=== PATIENT | male | born 1970 | race Two or more races ===

== ENCOUNTER 2020-08-24 06:45 | Outpatient (REF) | payer OTHER, MEDICARE, MEDICAID, SELFPAY ==
[2020-08-24 07:11] LABS: MANUAL DIFF FLAG NO
[2020-08-24 07:32] LABS: Basophils Percent Auto 0.4 % (0-2); Eosinophils Absolute Auto 0.1 X10*3/uL (0.0-0.4); Hemoglobin 15.8 g/dl (14.0-18.0); Lymphocytes Absolute Auto 1.7 X10*3/uL (1.2-4.9); Lymphocytes Percent Auto 36.2 % (20-40); Mean Corpuscular HGB Conc 33.6 g/dl (31.0-36.0); Mean Corpuscular Hemoglobin 29.4 pg (27.0-33.0); Mean Corpuscular Volume 87.5 fL (80-98); Mean Platelet Volume 10.7 fL (9.4-12.4); Monocytes Absolute Auto 0.6 X10*3/uL (0.1-1.2); Monocytes Percent Auto 13.3 % (2-11); Neutrophils Absolute Auto 2.2 X10*3/uL (2.0-8.3); Neutrophils Percent Auto 48.1 % (45-73); Platelet Count 213 X10*3/uL (160-400); Red Blood Count 5.37 X10*6/uL (4.60-5.80); Red Cell Distribution Width 12.9 % (11.0-16.0); White Blood Count 4.6 X10*3/uL (4.8-10.8)
[2020-08-24 07:40] LABS: Alanine Aminotransferase 27 U/L (0-40); Albumin Level 3.9 g/dL (3.5-5.0); Alkaline Phosphatase 97 U/L (39-117); Anion Gap 14 (12-20); Aspartate Amino Transferase 26 U/L (5-37); Bilirubin Total 0.6 mg/dL (0.0-1.0); Blood Urea Nitrogen 19 mg/dL (9-16); Calcium 8.8 mg/dL (8.4-10.2); Carbon Dioxide 26 mmol/L (22-29); Chloride 104 mmol/L (96-108); Cholesterol 270 mg/dL; Estimated Glomerular Filt Rate > 60; Glucose Fasting 109 mg/dL (60-99); HDL Cholesterol 27 mg/dL; Sodium 140 mmol/L (135-145); Total Protein 7.1 g/dL (6.5-8.0); Triglycerides 1049 mg/dL
== END 2020-08-24 06:46 | disposition home or self-care (01) ==
LOC: HO.LAB 06:45
PROVIDERS: Visit Provider Internal Medicine
DX: Z00.00 Encounter for general adult medical examination without abnormal findings (principal); E11.9 Type 2 diabetes mellitus without complications
CPT/HCPCS: 36415; 80053; 80061; 85025

== ENCOUNTER 2021-04-28 07:06 | Outpatient (REF) | payer OTHER, MEDICARE, MEDICAID, SELFPAY ==
[2021-04-28 07:21] LABS: MANUAL DIFF FLAG NO
[2021-04-28 08:02] LABS: Basophils Percent Auto 0.2 % (0-2); Eosinophils Absolute Auto 0.1 X10*3/uL (0.0-0.4); Eosinophils Percent Auto 1.6 % (0-4); Hemoglobin 15.7 g/dl (14.0-18.0); Imm Gran Abs Auto 0.01 X10*3/uL (0.00-0.03); Imm Gran Pct Auto 0.2 % (0.0-0.4); Lymphocytes Absolute Auto 1.5 X10*3/uL (1.2-4.9); Lymphocytes Percent Auto 29.9 % (20-40); Mean Corpuscular HGB Conc 34.1 g/dl (31.0-36.0); Mean Corpuscular Hemoglobin 29.5 pg (27.0-33.0); Mean Corpuscular Volume 86.5 fL (80-98); Mean Platelet Volume 10.8 fL (9.4-12.4); Monocytes Absolute Auto 0.7 X10*3/uL (0.1-1.2); Monocytes Percent Auto 14.6 % (2-11); Neutrophils Absolute Auto 2.7 X10*3/uL (2.0-8.3); Neutrophils Percent Auto 53.5 % (45-73); Platelet Count 202 X10*3/uL (160-400); Red Blood Count 5.32 X10*6/uL (4.60-5.80); Red Cell Distribution Width 12.9 % (11.0-16.0)
[2021-04-28 08:29] LABS: Alanine Aminotransferase 30 U/L (0-40); Albumin Level 4.1 g/dL (3.5-5.0); Alkaline Phosphatase 95 U/L (39-117); Anion Gap 10 (12-20); Aspartate Amino Transferase 31 U/L (5-37); Bilirubin Total 0.6 mg/dL (0.0-1.0); Blood Urea Nitrogen 21 mg/dL (9-16); Calcium 9.3 mg/dL (8.4-10.2); Carbon Dioxide 31 mmol/L (22-29); Chloride 104 mmol/L (96-108); Cholesterol 242 mg/dL; Estimated Glomerular Filt Rate > 60; Glucose Fasting 111 mg/dL (60-99); HDL Cholesterol 35 mg/dL; Potassium 4.8 mmol/L (3.3-5.1); Sodium 140 mmol/L (135-145); Total Protein 7.1 g/dL (6.5-8.0); Triglycerides 576 mg/dL
[2021-04-28 08:48] LABS: Thyroid Stimulating Hormone 0.99 uIU/mL (0.32-4.0)
== END 2021-04-28 07:07 | disposition home or self-care (01) ==
LOC: HO.LAB 07:06
PROVIDERS: PCP Internal Medicine; Visit Provider Internal Medicine
DX: Z00.00 Encounter for general adult medical examination without abnormal findings (principal); E11.9 Type 2 diabetes mellitus without complications; E03.9 Hypothyroidism, unspecified
CPT/HCPCS: 36415; 80053; 80061; 84443; 85025

== ENCOUNTER 2022-04-04 07:06 | Outpatient (REF) | payer OTHER, MEDICAID, SELFPAY ==
[2022-04-04 07:26] LABS: MANUAL DIFF FLAG NO
[2022-04-04 07:43] LABS: Basophils Percent Auto 0.4 % (0-2); Eosinophils Absolute Auto 0.1 X10*3/uL (0.0-0.4); Eosinophils Percent Auto 0.9 % (0-4); Hematocrit 45.8 % (42.0-52.0); Hemoglobin 15.6 g/dl (14.0-18.0); Imm Gran Abs Auto 0.02 X10*3/uL (0.00-0.03); Imm Gran Pct Auto 0.4 % (0.0-0.4); Lymphocytes Absolute Auto 1.7 X10*3/uL (1.2-4.9); Lymphocytes Percent Auto 30.4 % (20-40); Mean Corpuscular HGB Conc 34.1 g/dl (31.0-36.0); Mean Corpuscular Hemoglobin 29.6 pg (27.0-33.0); Mean Corpuscular Volume 86.9 fL (80.0-98.0); Mean Platelet Volume 10.6 fL (9.4-12.4); Monocytes Absolute Auto 0.7 X10*3/uL (0.1-1.2); Monocytes Percent Auto 12.8 % (2-11); Neutrophils Percent Auto 55.1 % (45-73); Platelet Count 205 X10*3/uL (160-400); Red Blood Count 5.27 X10*6/uL (4.60-5.80); Red Cell Distribution Width 12.6 % (11.0-16.0); White Blood Count 5.5 X10*3/uL (4.8-10.8)
[2022-04-04 08:08] LABS: Alanine Aminotransferase 23 U/L (0-40); Albumin Level 3.8 g/dL (3.5-5.0); Alkaline Phosphatase 86 U/L (39-117); Anion Gap 14 (12-20); Aspartate Amino Transferase 25 U/L (5-37); Bilirubin Total 0.2 mg/dL (0.0-1.0); Blood Urea Nitrogen 13 mg/dL (9-16); Calcium 8.8 mg/dL (8.4-10.2); Carbon Dioxide 27 mmol/L (22-29); Chloride 103 mmol/L (96-108); Cholesterol 313 mg/dL; Estimated Glomerular Filt Rate > 60; Glucose Fasting 108 mg/dL (60-99); HDL Cholesterol 27 mg/dL; Potassium 4.1 mmol/L (3.3-5.1); Sodium 140 mmol/L (135-145); Total Protein 7.1 g/dL (6.5-8.0); Triglycerides 1127 mg/dL
== END 2022-04-04 07:07 | disposition home or self-care (01) ==
LOC: HO.LAB 07:06
PROVIDERS: PCP Internal Medicine; Visit Provider Internal Medicine
DX: Z13.0 Encounter for screening for diseases of the blood and blood-forming organs and certain disorders involving the immune mechanism (principal); E78.5 Hyperlipidemia, unspecified; I10 Essential (primary) hypertension
CPT/HCPCS: 36415; 80053; 80061; 85025

== ENCOUNTER 2022-05-30 06:15 | Outpatient (REF) | payer OTHER, MEDICAID, SELFPAY ==
[2022-05-30 06:27] LABS: MANUAL DIFF FLAG NO
--- NOTE | 2022-05-30 06:33 | ECG_ITS ---
Test Reason : check rhythm Blood Pressure : / mmHG Vent. Rate : 053 BPM Atrial Rate : 053 BPM P-R Int : 144 ms QRS Dur : 068 ms QT Int : 424 ms P-R-T Axes : 038 -19 022 degrees QTc Int : 397 ms Sinus bradycardia Minimal voltage criteria for LVH, may be normal variant ( R in aVL ) Otherwise normal ECG No previous ECGs available Referred By: Vance Sarah Electronically Signed By:MAKENZIE SCHOFIELD MD
[2022-05-30 07:24] LABS: Basophils Percent Auto 0.3 % (0-2); Eosinophils Absolute Auto 0.1 X10*3/uL (0.0-0.4); Eosinophils Percent Auto 1.7 % (0-4); Hematocrit 46.8 % (42.0-52.0); Hemoglobin 15.7 g/dl (14.0-18.0); Imm Gran Abs Auto 0.02 X10*3/uL (0.00-0.03); Imm Gran Pct Auto 0.3 % (0.0-0.4); Lymphocytes Absolute Auto 2.2 X10*3/uL (1.2-4.9); Mean Corpuscular HGB Conc 33.5 g/dl (31.0-36.0); Mean Corpuscular Hemoglobin 29.5 pg (27.0-33.0); Monocytes Absolute Auto 0.7 X10*3/uL (0.1-1.2); Monocytes Percent Auto 12.9 % (2-11); Neutrophils Absolute Auto 2.7 x10*3/uL (2.0-8.3); Neutrophils Percent Auto 46.8 % (45-73); Platelet Count 206 X10*3/uL (160-400); Red Blood Count 5.32 X10*6/uL (4.60-5.80); Red Cell Distribution Width 12.7 % (11.0-16.0); White Blood Count 5.7 X10*3/uL (4.8-10.8)
[2022-05-30 07:50] LABS: Alanine Aminotransferase 23 U/L (0-40); Alkaline Phosphatase 89 U/L (39-117); Anion Gap 15 (12-20); Aspartate Amino Transferase 23 U/L (5-37); Bilirubin Total 0.5 mg/dL (0.0-1.0); Blood Urea Nitrogen 19 mg/dL (9-16); Carbon Dioxide 28 mmol/L (22-29); Chloride 104 mmol/L (96-108); Cholesterol 228 mg/dL; Estimated Glomerular Filt Rate > 60; Glucose Fasting 102 mg/dL (60-99); HDL Cholesterol 31 mg/dL; Potassium 4.5 mmol/L (3.3-5.1); Sodium 142 mmol/L (135-145); Total Protein 7.1 g/dL (6.5-8.0); Triglycerides 481 mg/dL
== END 2022-05-30 06:16 | disposition home or self-care (01) ==
LOC: HO.LAB 06:15
PROVIDERS: PCP Internal Medicine; Visit Provider Internal Medicine
DX: E78.5 Hyperlipidemia, unspecified (principal); F20.9 Schizophrenia, unspecified; I10 Essential (primary) hypertension; Z13.0 Encounter for screening for diseases of the blood and blood-forming organs and certain disorders involving the immune mechanism
CPT/HCPCS: 36415; 80053; 80061; 85025; 93005

== ENCOUNTER 2022-10-22 11:37 | Outpatient (REF) | payer OTHER, MEDICAID, SELFPAY ==
--- NOTE | ~2022-10-22 | XR_ITS ---
EXAMINATION: XR HAND, LEFT CLINICAL INFORMATION: Left hand pain. COMPARISON: None available. TECHNIQUE: PA, lateral, and oblique views of the left hand. An indicator arrow is pointing to the lateral wrist. FINDINGS: The bones and soft tissues are normal. No fracture. Alignment is anatomic. Joint spaces are maintained. No erosions or soft tissue calcifications. XR/XR hand LT 2V IMPRESSION: Unremarkable left hand.
== END 2022-10-22 11:38 | disposition home or self-care (01) ==
LOC: HO.XRAY 11:37
PROVIDERS: PCP Internal Medicine; Visit Provider Internal Medicine
DX: M79.642 Pain in left hand (principal)
CPT/HCPCS: 73120

== ENCOUNTER 2023-02-26 08:38 | Outpatient (AMB) | payer OTHER, SELFPAY ==
--- NOTE | 2023-02-26 08:35 | MHC.PC.OV ---
Intake Visit Reasons: Med management Intake Note: Patient is here to follow up on med management . 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 Accompanied by: Spouse Allergies codeine Allergy (Unknown, Verified 02/26/23 08:36) nausea, headache, dizziness morphine Allergy (Unknown, Verified 02/26/23 08:36) nausea, headache, dizziness, shakiness Medication List - Last Reconciled 02/26/23 by Vance Sarah MD atorvastatin 20 mg PO DAILY bupropion HCl 150 mg PO BID gabapentin 300 mg PO BID hydroxyzine HCl 50 mg PO BID PRN ibuprofen 600 mg PO Q6-8H nabumetone 750 mg PO BID oxycodone 15 mg PO QID PRN 28 days oxycodone ER 30 mg PO Q12H topiramate 100 mg PO BID trazodone 100 mg PO BEDTIME PRN ziprasidone HCl 60 mg PO BID zolmitriptan 5 mg PO ONCE PRN Tobacco use date assessed: 02/26/23 HPI Med management HPI Details chronic pain syndrome; compliant on regimen [facility] Medical History (Updated 05/29/22 @ 09:00 by Vance Sarah MD) Chronic headaches Pain management Schizophrenia Surgical History No pertinent past surgical history Family History Father Hypercholesterolemia Mother Hypertension Depression Brother Depression Brother No problems noted. Sister No problems noted. Sister No problems noted. Son No problems noted. Daughter No problems noted. Daughter No problems noted. Daughter No problems noted. Social History Housing: House Alcohol intake: never Patient Tobacco Use Status: Never used Tobacco e-Cigarette/Vaping Use: Never Used Second Hand Smoke Exposure: No service: No Current occupational status: disabled Cognitive needs: No Hearing needs: No Vision needs: Yes Questionnaire Thrive Questionnaire Date Thrive assessed: 09/26/22 KENNY-7 AMB Questionnaire KENNY-7 Date KENNY - 7 assessed: 11/25/22 Source: Developed by Drs. Mauricio Rene, Samina Moya, Lee Gary and colleagues, with an educational mary from [employer]. Review of Systems Const Denies chills, Denies headache(s) and Denies weight loss ENT Denies headache(s) Card Denies chest pain, Denies syncope, Denies irregular heart rhythm and Denies dyspnea Resp Denies chest congestion, Denies cough and Denies dyspnea GI Denies abdominal pain, Denies change in stool character, Denies nausea and Denies vomiting Musc Denies deformity and Denies joint swelling Neuro Denies syncope and Denies headache(s) Physical exam (Primary Care) Tobacco/Smoking Status: Tobacco use Status Tobacco use date assessed 02/26/23 02/26/23 08:37 Patient Tobacco Use Status Never used Tobacco 02/26/23 08:37 e-Cigarette/Vaping Use Never Used 02/26/23 08:37 Thrive Assessment: Date of Thrive Assessment Date Thrive assessed 09/26/22 02/26/23 08:37 Telehealth Telehealth Location of provider rendering services: practice address Location of patient: address on file Patient Identification confirmed using: Name, : Yes Telehealth method: voice only Patient verbally consented to treatment: Yes Patient verbally consented to billing insurance company: Yes Patient informed of any privacy concerns related to visit: Yes Minutes spent on Phone/Video with Pt.: 15 (telephone) Assessment and Plan Assessment & Plan (1) Chronic pain disorder: Code(s): G89.4 - Chronic pain syndrome Plan: stable; same rx Medications: Refilled oxycodone 15 mg PO QID PRN 120 tabs 0RF pain 28 days oxycodone ER 30 mg PO Q12H 60 tabs 0RF Coding Level of Care Code Tele Est Pt Level 3 (27221) Diagnoses Chronic pain disorder G89.4
== END 2023-02-26 09:32 | disposition home or self-care (01) ==
LOC: HO.HMGH 08:38
PROVIDERS: PCP Internal Medicine; Visit Provider Internal Medicine
DX: G89.4 Chronic pain syndrome (principal)
CPT/HCPCS: 99213

== ENCOUNTER 2023-03-28 08:41 | Outpatient (AMB) | payer OTHER, MEDICAID, SELFPAY ==
--- NOTE | 2023-03-28 08:34 | MHC.PC.OV ---
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 Accompanied by: Spouse Allergies codeine Allergy (Unknown, Verified 03/28/23 08:37) nausea, headache, dizziness morphine Allergy (Unknown, Verified 03/28/23 08:37) nausea, headache, dizziness, shakiness Medication List - Last Reconciled 03/28/23 by Vance Sarah MD atorvastatin 20 mg PO DAILY bupropion HCl 150 mg PO BID gabapentin 300 mg PO BID hydroxyzine HCl 50 mg PO BID PRN ibuprofen 600 mg PO Q6-8H nabumetone 750 mg PO BID oxycodone 15 mg PO QID PRN 28 days oxycodone ER 30 mg PO Q12H topiramate 100 mg PO BID trazodone 100 mg PO BEDTIME PRN ziprasidone HCl 60 mg PO BID zolmitriptan 5 mg PO ONCE PRN Tobacco use date assessed: 02/26/23 Dental Screening Dental Screen Date: 03/28/23 Did you have a dental visit in the last 12 months?: Yes Did you have a dental problem in the last 6 months where you did not have access to dental care?: No Was dental information given to patient?: Patient has dentist HPI Med management HPI Details chronic pain f/u; doing well and compliant [facility] Medical History Chronic headaches Pain management Schizophrenia Surgical History No pertinent past surgical history Family History Father Hypercholesterolemia Mother Hypertension Depression Brother Depression Brother No problems noted. Sister No problems noted. Sister No problems noted. Son No problems noted. Daughter No problems noted. Daughter No problems noted. Daughter No problems noted. Social History Housing: House Alcohol intake: never Patient Tobacco Use Status: Never used Tobacco e-Cigarette/Vaping Use: Never Used Second Hand Smoke Exposure: No service: No Current occupational status: disabled Cognitive needs: No Hearing needs: No Vision needs: Yes Questionnaire PHQ-9 Over the last 2 weeks, how often have you been bothered by any of the following problems? 1. Little interest or pleasure in doing things: several days 2. Feeling down, depressed, or hopeless: several days 3. Trouble falling or staying asleep, or sleeping too much: several days 4. Feeling tired or having little energy: several days 5. Poor appetite or overeating: several days 6. Feeling bad about yourself - or that you are a failure or have let yourself or your family down: several days 7. Trouble concentrating on things, such as reading the newspaper or watching television: several days 8. Moving or speaking so slowly that other people could have noticed. Or the opposite - being so fidgety or restless that you have been moving around a lot more than usual: nearly every day 9. Thoughts that you would be better off or of hurting yourself in some way: not at all Total score: 10 Depression Screening Interpretation: Positive 85056 - PHQ-9 Billing: Yes Source: Developed by Drs. Mauricio Rene, Samina Moya, Lee Gary and colleagues, with an educational mary from [employer]. Thrive Questionnaire Date Thrive assessed: 09/26/22 AUDIT C Alcohol Use Questionnaire (AUDIT-C) 1. How often do you have a drink containing alcohol?: Never Total Score: 0 Score Reviewed/Action Taken: Yes KENNY-7 AMB Questionnaire KENNY-7 Date KENNY - 7 assessed: 11/25/22 Source: Developed by Drs. Mauricio Rene, Lee Ingram and colleagues, with an educational mary from [employer]. Review of Systems Const Denies chills, Denies headache(s) and Denies weight loss ENT Denies headache(s) Card Denies chest pain, Denies syncope, Denies irregular heart rhythm and Denies dyspnea Resp Denies chest congestion, Denies cough and Denies dyspnea GI Denies abdominal pain, Denies change in stool character, Denies nausea and Denies vomiting Musc Denies deformity and Denies joint swelling Neuro Denies syncope and Denies headache(s) Physical exam (Primary Care) BMI result Body Mass Index 28.3 Tobacco/Smoking Status: Tobacco use Status Tobacco use date assessed 02/26/23 03/28/23 08:39 Patient Tobacco Use Status Never used Tobacco 03/28/23 08:39 e-Cigarette/Vaping Use Never Used 03/28/23 08:39 PHQ-9: PHQ-9 Score PHQ-9: Total score 10 03/28/23 08:39 Depression Screening Interpretation: Positive Thrive Assessment: Date of Thrive Assessment Date Thrive assessed 09/26/22 03/28/23 08:39 Telehealth Telehealth Location of provider rendering services: practice address Location of patient: address on file Patient Identification confirmed using: Name, : Yes Telehealth method: voice only Patient verbally consented to treatment: Yes Patient verbally consented to billing insurance company: Yes Patient informed of any privacy concerns related to visit: Yes Minutes spent on Phone/Video with Pt.: 15 (telephone) Assessment and Plan Assessment & Plan (1) Pain management: Code(s): R52 - Pain, unspecified Plan: stable same rx Medications: Refilled oxycodone 15 mg PO QID PRN 120 tabs 0RF pain 28 days oxycodone ER 30 mg PO Q12H 60 tabs 0RF Coding Level of Care Code Tele Est Pt Level 3 (47855) Diagnoses Pain management R52
[2023-03-28 08:37] VITALS: BMI 28.3
== END 2023-03-28 09:13 | disposition home or self-care (01) ==
LOC: HO.HMGH 08:41
PROVIDERS: PCP Internal Medicine; Visit Provider Internal Medicine
DX: R52 Pain, unspecified (principal)
CPT/HCPCS: 99213

== ENCOUNTER 2023-05-28 08:27 | Outpatient (AMB) | payer OTHER, SELFPAY ==
--- NOTE | 2023-05-28 08:28 | MHC.PC.OV ---
Intake Visit Reasons: Med management [phone] Allergies codeine Allergy (Unknown, Verified 05/28/23 08:28) nausea, headache, dizziness morphine Allergy (Unknown, Verified 05/28/23 08:28) nausea, headache, dizziness, shakiness Medication List - Last Reconciled 05/28/23 by Vance Sarah MD atorvastatin 20 mg PO DAILY bupropion HCl 150 mg PO BID gabapentin 300 mg PO BID hydroxyzine HCl 50 mg PO BID PRN ibuprofen 600 mg PO Q6-8H lamotrigine 25 mg PO DAILY nabumetone 750 mg PO BID oxycodone 15 mg PO QID PRN 28 days oxycodone ER 30 mg PO Q12H topiramate 100 mg PO BID trazodone 100 mg PO BEDTIME PRN ziprasidone HCl 60 mg PO BID zolmitriptan 5 mg PO ONCE PRN Tobacco use date assessed: 02/26/23 Dental Screening Dental Screen Date: 05/28/23 Did you have a dental visit in the last 12 months?: Yes Did you have a dental problem in the last 6 months where you did not have access to dental care?: No Was dental information given to patient?: Patient has dentist HPI Med management [phone] HPI Details chronic pain on rx; has moved to [place] and is finding him a new pcp there [facility] Medical History Chronic headaches Pain management Schizophrenia Surgical History No pertinent past surgical history Family History Father Hypercholesterolemia Mother Hypertension Depression Brother Depression Brother No problems noted. Sister No problems noted. Sister No problems noted. Son No problems noted. Daughter No problems noted. Daughter No problems noted. Daughter No problems noted. Social History Housing: House Alcohol intake: never Patient Tobacco Use Status: Never used Tobacco e-Cigarette/Vaping Use: Never Used Second Hand Smoke Exposure: No service: No Current occupational status: disabled Cognitive needs: No Hearing needs: No Vision needs: Yes Questionnaire PHQ-9 Over the last 2 weeks, how often have you been bothered by any of the following problems? 1. Little interest or pleasure in doing things: several days 2. Feeling down, depressed, or hopeless: several days 3. Trouble falling or staying asleep, or sleeping too much: several days 4. Feeling tired or having little energy: several days 5. Poor appetite or overeating: several days 6. Feeling bad about yourself - or that you are a failure or have let yourself or your family down: several days 7. Trouble concentrating on things, such as reading the newspaper or watching television: several days 8. Moving or speaking so slowly that other people could have noticed. Or the opposite - being so fidgety or restless that you have been moving around a lot more than usual: nearly every day 9. Thoughts that you would be better off or of hurting yourself in some way: not at all Total score: 10 Depression Screening Interpretation: Positive Depression Screening Done: Yes 94259 - PHQ-9 Billing: Yes Source: Developed by Drs. Mauricio Rene, Samina Moya, Lee Gayr and colleagues, with an educational mary from [employer]. Thrive Questionnaire Date Thrive assessed: 09/26/22 AUDIT C Alcohol Use Questionnaire (AUDIT-C) 1. How often do you have a drink containing alcohol?: Never Total Score: 0 Score Reviewed/Action Taken: Yes KENNY-7 AMB Questionnaire KENNY-7 Date KENNY - 7 assessed: 11/25/22 Source: Developed by Drs. Mauricio Rene, Lee Ingram and colleagues, with an educational mary from [employer]. Review of Systems Const Denies chills, Denies headache(s) and Denies weight loss ENT Denies headache(s) Card Denies chest pain, Denies syncope, Denies irregular heart rhythm and Denies dyspnea Resp Denies chest congestion, Denies cough and Denies dyspnea GI Denies abdominal pain, Denies change in stool character, Denies nausea and Denies vomiting Musc Denies deformity and Denies joint swelling Neuro Denies syncope and Denies headache(s) Physical exam (Primary Care) Tobacco/Smoking Status: Tobacco use Status Tobacco use date assessed 02/26/23 05/28/23 08:29 Patient Tobacco Use Status Never used Tobacco 05/28/23 08:29 e-Cigarette/Vaping Use Never Used 05/28/23 08:29 PHQ-9: PHQ-9 Score PHQ-9: Total score 10 05/28/23 08:29 Depression Screening Interpretation: Positive Thrive Assessment: Date of Thrive Assessment Date Thrive assessed 09/26/22 05/28/23 08:29 Telehealth Telehealth Location of provider rendering services: practice address Location of patient: address on file Patient Identification confirmed using: Name, : Yes Telehealth method: video (Iphone) Patient verbally consented to treatment: Yes Patient verbally consented to billing insurance company: Yes Patient informed of any privacy concerns related to visit: Yes Minutes spent on Phone/Video with Pt.: 15 (telephone) Assessment and Plan Assessment & Plan (1) Chronic pain disorder: Code(s): G89.4 - Chronic pain syndrome Plan: stable; same rx Medications: Refilled oxycodone 15 mg PO QID PRN 120 tabs 0RF pain 28 days oxycodone ER 30 mg PO Q12H 60 tabs 0RF Coding Level of Care Code Tele Est Pt Level 3 (99255) Diagnoses Chronic pain disorder G89.4
== END 2023-05-28 10:13 | disposition home or self-care (01) ==
LOC: HO.HMGH 08:27
PROVIDERS: PCP Internal Medicine; Visit Provider Internal Medicine
DX: G89.4 Chronic pain syndrome (principal)
CPT/HCPCS: 99213